=== PATIENT | female | born 1970 | race Two or more races ===

== ENCOUNTER 2016-06-06 22:09 | Emergency (ER) | payer MEDICAID ==
[~2016-06-06] VITALS: Ht 149.9 cm; Wt 72.6 kg
[2016-06-07 02:31] VITALS: BP 147/103
== END 2016-06-07 02:36 | disposition left against medical advice (07) ==
LOC: ER 22:14
DX: M25.512 Pain in left shoulder (principal); M25.511 Pain in right shoulder; R51 Headache
CPT/HCPCS: 81025; 93005

== ENCOUNTER 2016-08-02 17:50 | Emergency (ER) | payer MEDICAID ==
[~2016-08-02] VITALS: Ht 149.9 cm; Wt 77.1 kg
[2016-08-02 18:01] VITALS: BP 130/102
[2016-08-02 20:18] LABS: Urine Bilirubin Negative (Negative); Urine Blood Negative /uL (Negative); Urine Color Yellow (Yellow); Urine Glucose Normal (Normal); Urine Ketone Negative (Negative); Urine Mucus FEW (None Seen); Urine RBC <1 /hpf (0 - 4); Urine Squamous Epithelial Cell FEW /hpf (<5); Urine Urobilinogen Normal (Negative); Urine pH 6.5 (5.0-8.0)
[2016-08-02 20:19] LABS: Urine Nitrite POSITIVE (Negative)
== END 2016-08-03 04:55 | disposition left against medical advice (07) ==
LOC: ER 17:54
DX: M54.9 Dorsalgia, unspecified (principal); Z53.21 Procedure and treatment not carried out due to patient leaving prior to being seen by health care provider
CPT/HCPCS: 81001; 81025